=== PATIENT | female | born 1995 | race Caucasian/White ===

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

== ENCOUNTER 2017-03-02 10:19 | Emergency (ER) | payer MEDICAID ==
[2017-03-02 12:17] LABS: BASOPHILS 0.2 % (0-2); EOSINOPHILS 0.7 % (0-7); HEMATOCRIT 38.9 % (36.0-48.0); HEMOGLOBIN 13.3 g/dL (12-16); IMMATURE GRANULOCYTES 0.2 % (0-5); LYMPHOCYTES 34.6 % (15-50); MCH 28.7 pg (26.0-34.0); MCHC 34.2 g/dL (31.0-37.0); MCV 83.8 fL (80.0-100.0); MEAN PLATELET VOLUME 9.7 fL (7.4-10.4); MONOCYTES 6.5 % (2-11); NEUTROPHILS 57.8 % (40-80); RBC 4.64 10x6/uL (4.00-5.40); RDW 12.8 % (11.5-14.5); WBC 5.7 10x3/uL (4.8-10.8)
[2017-03-02 12:21] LABS: PLATELET COUNT 216 10x3/uL (130-400)
[2017-03-02 12:33] LABS: APPEARANCE HAZY (CLEAR); BILIRUBIN NEGATIVE (NEGATIVE); COLOR YELLOW (YELLOW); GLUCOSE NEGATIVE (NEGATIVE); KETONE NEGATIVE (NEGATIVE); LEUKOCYTE ESTERASE 1+ (NEGATIVE); NITRITE NEGATIVE (NEGATIVE); PROTEIN NEGATIVE (NEGATIVE); UROBILINOGEN NORMAL (NORMAL)
[2017-03-02 12:36] LABS: ALBUMIN 3.6 g/dL (3.4-5.0); ALKALINE PHOSPHATASE 85 U/L (46-116); ALT (SGPT) 24 U/L (10-68); AMYLASE - SERUM 56 U/L (25-115); BILIRUBIN - TOTAL 0.41 mg/dL (0.2-1.3); CALC OSMOLALITY 277 mosm/kg (275-300); CARBON DIOXIDE 28.8 mmol/L (21.0-32.0); CHLORIDE - SERUM 106 mmol/L (98-107); GLUCOSE 88 mg/dL (74-106); LIPASE 169 U/L (73-393); POTASSIUM - SERUM 3.8 mmol/L (3.5-5.1); PROTEIN - SERUM 7.4 g/dL (6.4-8.2); SODIUM 139 mmol/L (136-145); UREA NITROGEN 14 mg/dL (7-18); eGFR NON AFRICAN AMERICAN 76 mL/min (90-120)
[2017-03-02 12:37] LABS: BACTERIA FEW /hpf (NONE SEEN); RED CELLS - URINE OCC /hpf (0-5)
[2017-03-02 12:38] LABS: MUCUS <1+ /lpf (NONE SEEN)
[2017-03-02 12:41] LABS: HCG SERUM NEGATIVE (NEGATIVE)
== END 2017-03-02 13:34 | disposition home or self-care (01) ==
LOC: D.ER 10:19
PROVIDERS: Physician Assistant
DX: G43.909 Migraine, unspecified, not intractable, without status migrainosus (principal); R11.2 Nausea with vomiting, unspecified

== ENCOUNTER 2017-03-07 10:20 | Emergency (ER) | payer MEDICAID ==
[2017-03-07 10:57] LABS: BASOPHILS 0.3 % (0-2); EOSINOPHILS 0.9 % (0-7); HEMATOCRIT 38.8 % (36.0-48.0); IMMATURE GRANULOCYTES 0.2 % (0-5); LYMPHOCYTES 22.6 % (15-50); MCH 28.1 pg (26.0-34.0); MCHC 33.5 g/dL (31.0-37.0); MEAN PLATELET VOLUME 9.4 fL (7.4-10.4); MONOCYTES 9.4 % (2-11); NEUTROPHILS 66.6 % (40-80); PLATELET COUNT 217 10x3/uL (130-400); RBC 4.62 10x6/uL (4.00-5.40); RDW 12.6 % (11.5-14.5); WBC 5.8 10x3/uL (4.8-10.8)
[2017-03-07 11:22] LABS: ALBUMIN 3.6 g/dL (3.4-5.0); ALKALINE PHOSPHATASE 88 U/L (46-116); ALT (SGPT) 24 U/L (10-68); AMYLASE - SERUM 42 U/L (25-115); BILIRUBIN - TOTAL 0.46 mg/dL (0.2-1.3); CALC OSMOLALITY 279 mosm/kg (275-300); CALCIUM 8.7 mg/dL (8.5-10.1); CARBON DIOXIDE 29.1 mmol/L (21.0-32.0); CHLORIDE - SERUM 107 mmol/L (98-107); GLUCOSE 101 mg/dL (74-106); LIPASE 134 U/L (73-393); PROTEIN - SERUM 7.4 g/dL (6.4-8.2); SODIUM 141 mmol/L (136-145); UREA NITROGEN 9 mg/dL (7-18); eGFR NON AFRICAN AMERICAN 76 mL/min (90-120)
[2017-03-07 11:39] LABS: APPEARANCE CLEAR (CLEAR); BILIRUBIN NEGATIVE (NEGATIVE); COLOR YELLOW (YELLOW); GLUCOSE NEGATIVE (NEGATIVE); KETONE NEGATIVE (NEGATIVE); LEUKOCYTE ESTERASE NEGATIVE (NEGATIVE); NITRITE NEGATIVE (NEGATIVE); PROTEIN NEGATIVE (NEGATIVE); UROBILINOGEN NORMAL (NORMAL)
== END 2017-03-07 13:27 | disposition home or self-care (01) ==
LOC: D.ER 10:20
PROVIDERS: Emergency Medicine
DX: R11.10 Vomiting, unspecified (principal); R10.9 Unspecified abdominal pain

== ENCOUNTER 2017-04-03 15:55 | Emergency (ER) | payer MEDICAID | END 2017-04-03 19:00 | disposition left against medical advice (07) | LOC: D.ER 15:55 | DX: R05 Cough (principal) ==

== ENCOUNTER 2017-04-04 01:29 | Emergency (ER) | payer MEDICAID | END 2017-04-04 02:56 | disposition home or self-care (01) | LOC: D.ER 01:29 | DX: J02.9 Acute pharyngitis, unspecified (principal); R05 Cough; J45.909 Unspecified asthma, uncomplicated ==

== ENCOUNTER 2017-04-30 10:00 | Emergency (ER) | payer MEDICAID | END 2017-04-30 11:47 | disposition home or self-care (01) | LOC: D.ER 10:00 | DX: S92.511A Displaced fracture of proximal phalanx of right lesser toe(s), initial encounter for closed fracture (principal); X58.XXXA Exposure to other specified factors, initial encounter; Y93.89 Activity, other specified; Y92.89 Other specified places as the place of occurrence of the external cause; J45.909 Unspecified asthma, uncomplicated ==

== ENCOUNTER 2017-05-19 13:19 | Emergency (ER) | payer MEDICAID ==
[2017-05-19 13:55] LABS: BASOPHILS 0.6 % (0-2); EOSINOPHILS 1.5 % (0-7); HEMATOCRIT 38.6 % (36.0-48.0); HEMOGLOBIN 12.8 g/dL (12-16); LYMPHOCYTES 28.8 % (15-50); MCH 28.3 pg (26.0-34.0); MCHC 33.2 g/dL (31.0-37.0); MCV 85.4 fL (80.0-100.0); MEAN PLATELET VOLUME 9.8 fL (7.4-10.4); MONOCYTES 7.1 % (2-11); PLATELET COUNT 193 10x3/uL (130-400); RBC 4.52 10x6/uL (4.00-5.40); RDW 13.4 % (11.5-14.5); WBC 4.8 10x3/uL (4.8-10.8)
[2017-05-19 14:07] LABS: AMORPHOUS SEDIMENT <1+ /lpf (NONE SEEN); APPEARANCE HAZY (CLEAR); BACTERIA MODERATE /hpf (NONE SEEN); BILIRUBIN NEGATIVE (NEGATIVE); COLOR YELLOW (YELLOW); GLUCOSE NEGATIVE (NEGATIVE); KETONE NEGATIVE (NEGATIVE); LEUKOCYTE ESTERASE 2+ (NEGATIVE); MUCUS <1+ /lpf (NONE SEEN); NITRITE NEGATIVE (NEGATIVE); PROTEIN NEGATIVE (NEGATIVE); UROBILINOGEN NORMAL (NORMAL)
[2017-05-19 14:11] LABS: ALBUMIN 3.3 g/dL (3.4-5.0); ALKALINE PHOSPHATASE 69 U/L (46-116); ALT (SGPT) 21 U/L (10-68); BILIRUBIN - TOTAL 0.48 mg/dL (0.2-1.3); CALC OSMOLALITY 279 mosm/kg (275-300); CALCIUM 8.3 mg/dL (8.5-10.1); CARBON DIOXIDE 27.9 mmol/L (21.0-32.0); CHLORIDE - SERUM 107 mmol/L (98-107); CREATININE - SERUM 0.8 mg/dL (0.6-1.3); GLUCOSE 93 mg/dL (74-106); POTASSIUM - SERUM 3.8 mmol/L (3.5-5.1); PROTEIN - SERUM 6.7 g/dL (6.4-8.2); SODIUM 141 mmol/L (136-145); UREA NITROGEN 9 mg/dL (7-18); eGFR NON AFRICAN AMERICAN > 90 mL/min (90-120)
[2017-05-19 14:21] LABS: HCG SERUM NEGATIVE (NEGATIVE)
== END 2017-05-19 15:49 | disposition home or self-care (01) ==
LOC: D.ER 13:19
PROVIDERS: Emergency Medicine
DX: N72 Inflammatory disease of cervix uteri (principal); N83.201 Unspecified ovarian cyst, right side; N39.0 Urinary tract infection, site not specified; N76.0 Acute vaginitis

== ENCOUNTER 2017-05-23 14:34 | Emergency (ER) | payer MEDICAID | END 2017-05-23 15:35 | disposition home or self-care (01) | LOC: D.ER 14:34 | DX: N76.0 Acute vaginitis (principal); R10.9 Unspecified abdominal pain; R30.0 Dysuria; R11.2 Nausea with vomiting, unspecified ==

== ENCOUNTER → 2017-06-12 17:07 | Outpatient (CLI) | payer MEDICAID ==
[2017-06-12 18:25] LABS: APPEARANCE CLEAR (CLEAR); BILIRUBIN NEGATIVE (NEGATIVE); COLOR YELLOW (YELLOW); GLUCOSE NEGATIVE (NEGATIVE); KETONE NEGATIVE (NEGATIVE); LEUKOCYTE ESTERASE NEGATIVE (NEGATIVE); NITRITE NEGATIVE (NEGATIVE); PROTEIN NEGATIVE (NEGATIVE); SPECIFIC GRAVITY 1.015 (1.005-1.020); UROBILINOGEN NORMAL (NORMAL)
[2017-06-12 19:00] LABS: AMYLASE - SERUM 42 U/L (25-115); HCG - QUANTITATIVE (MATERNAL) 14896 mIU/mL
== END | disposition home or self-care (01) ==
LOC: D.LDO 17:07
PROVIDERS: Obstetrics & Gynecology
DX: O21.0 Mild hyperemesis gravidarum (principal); Z3A.01 Less than 8 weeks gestation of pregnancy

== ENCOUNTER 2017-06-27 01:24 | Emergency (ER) | payer MEDICAID ==
[2017-06-27 02:04] LABS: APPEARANCE CLEAR (CLEAR); BILIRUBIN NEGATIVE (NEGATIVE); COLOR YELLOW (YELLOW); GLUCOSE NEGATIVE (NEGATIVE); KETONE NEGATIVE (NEGATIVE); LEUKOCYTE ESTERASE NEGATIVE (NEGATIVE); NITRITE NEGATIVE (NEGATIVE); PROTEIN NEGATIVE (NEGATIVE); UROBILINOGEN NORMAL (NORMAL)
[2017-06-27 02:13] LABS: BASOPHILS 0.2 % (0-2); EOSINOPHILS 1.5 % (0-7); HEMATOCRIT 34.7 % (36.0-48.0); IMMATURE GRANULOCYTES 0.1 % (0-5); LYMPHOCYTES 19.1 % (15-50); MCH 28.6 pg (26.0-34.0); MCHC 34.6 g/dL (31.0-37.0); MCV 82.8 fL (80.0-100.0); MEAN PLATELET VOLUME 9.2 fL (7.4-10.4); MONOCYTES 7.9 % (2-11); NEUTROPHILS 71.2 % (40-80); RBC 4.19 10x6/uL (4.00-5.40); RDW 12.6 % (11.5-14.5); WBC 10.4 10x3/uL (4.8-10.8)
[2017-06-27 02:15] LABS: PLATELET COUNT 244 10x3/uL (130-400)
[2017-06-27 02:27] LABS: ALBUMIN 3.2 g/dL (3.4-5.0); ALKALINE PHOSPHATASE 75 U/L (46-116); ALT (SGPT) 15 U/L (10-68); CALC OSMOLALITY 274 mosm/kg (275-300); CALCIUM 8.5 mg/dL (8.5-10.1); CARBON DIOXIDE 23.3 mmol/L (21.0-32.0); CHLORIDE - SERUM 106 mmol/L (98-107); CREATININE - SERUM 0.7 mg/dL (0.6-1.3); GLUCOSE 96 mg/dL (74-106); POTASSIUM - SERUM 3.5 mmol/L (3.5-5.1); PROTEIN - SERUM 6.4 g/dL (6.4-8.2); SODIUM 138 mmol/L (136-145); UREA NITROGEN 10 mg/dL (7-18); eGFR NON AFRICAN AMERICAN > 90 mL/min (90-120)
== END 2017-06-27 03:14 | disposition home or self-care (01) ==
LOC: D.ER 01:24
PROVIDERS: Emergency Medicine
DX: O26.891 Other specified pregnancy related conditions, first trimester (principal); Z3A.00 Weeks of gestation of pregnancy not specified; M79.605 Pain in left leg; M79.604 Pain in right leg

== ENCOUNTER 2017-06-28 14:30 | Emergency (ER) | payer MEDICAID | END 2017-06-28 19:00 | disposition left against medical advice (07) | LOC: D.ER 14:30 | DX: L02.412 Cutaneous abscess of left axilla (principal) ==

== ENCOUNTER 2017-07-09 14:25 | Emergency (ER) | payer MEDICAID ==
[2017-07-09 15:06] LABS: BASOPHILS 0.3 % (0-2); EOSINOPHILS 2.8 % (0-7); HEMATOCRIT 36.5 % (36.0-48.0); HEMOGLOBIN 12.5 g/dL (12-16); IMMATURE GRANULOCYTES 0.3 % (0-5); LYMPHOCYTES 24.5 % (15-50); MCH 28.9 pg (26.0-34.0); MCHC 34.2 g/dL (31.0-37.0); MCV 84.3 fL (80.0-100.0); MEAN PLATELET VOLUME 9.5 fL (7.4-10.4); MONOCYTES 7.4 % (2-11); NEUTROPHILS 64.7 % (40-80); PLATELET COUNT 253 10x3/uL (130-400); RBC 4.33 10x6/uL (4.00-5.40); RDW 12.7 % (11.5-14.5); WBC 6.5 10x3/uL (4.8-10.8)
[2017-07-09 15:20] LABS: APPEARANCE CLOUDY (CLEAR); BILIRUBIN NEGATIVE (NEGATIVE); COLOR YELLOW (YELLOW); GLUCOSE NEGATIVE (NEGATIVE); KETONE NEGATIVE (NEGATIVE); LEUKOCYTE ESTERASE 2+ (NEGATIVE); NITRITE NEGATIVE (NEGATIVE); PROTEIN NEGATIVE (NEGATIVE); SPECIFIC GRAVITY 1.015 (1.005-1.020); UROBILINOGEN NORMAL (NORMAL)
[2017-07-09 15:27] LABS: BACTERIA MANY /hpf (NONE SEEN); EPITHELIAL CELLS 0-5 /hpf (0-5); RED CELLS - URINE OCC /hpf (0-5)
[2017-07-09 15:28] LABS: HYALINE CAST RARE /lpf (NONE SEEN); MUCUS <1+ /lpf (NONE SEEN)
[2017-07-09 15:34] LABS: ALBUMIN 3.3 g/dL (3.4-5.0); ALKALINE PHOSPHATASE 77 U/L (46-116); ALT (SGPT) 21 U/L (10-68); BILIRUBIN - TOTAL 0.37 mg/dL (0.2-1.3); CALC OSMOLALITY 276 mosm/kg (275-300); CALCIUM 8.5 mg/dL (8.5-10.1); CHLORIDE - SERUM 107 mmol/L (98-107); CREATININE - SERUM 0.7 mg/dL (0.6-1.3); GLUCOSE 92 mg/dL (74-106); POTASSIUM - SERUM 4.3 mmol/L (3.5-5.1); PROTEIN - SERUM 6.5 g/dL (6.4-8.2); SODIUM 140 mmol/L (136-145); UREA NITROGEN 7 mg/dL (7-18); eGFR NON AFRICAN AMERICAN > 90 mL/min (90-120)
== END 2017-07-09 16:07 | disposition home or self-care (01) ==
LOC: D.ER 14:25
PROVIDERS: Emergency Medicine
DX: O26.891 Other specified pregnancy related conditions, first trimester (principal); Z3A.10 10 weeks gestation of pregnancy; R10.9 Unspecified abdominal pain; N39.0 Urinary tract infection, site not specified; J45.909 Unspecified asthma, uncomplicated

== ENCOUNTER 2017-07-09 20:56 | Emergency (ER) | payer MEDICAID ==
[2017-07-09 23:12] LABS: BASOPHILS 0.5 % (0-2); EOSINOPHILS 2.8 % (0-7); HEMATOCRIT 35.4 % (36.0-48.0); HEMOGLOBIN 12.1 g/dL (12-16); LYMPHOCYTES 32.7 % (15-50); MCH 28.7 pg (26.0-34.0); MCHC 34.2 g/dL (31.0-37.0); MCV 83.9 fL (80.0-100.0); MEAN PLATELET VOLUME 9.2 fL (7.4-10.4); MONOCYTES 8.7 % (2-11); NEUTROPHILS 55.3 % (40-80); PLATELET COUNT 256 10x3/uL (130-400); RBC 4.22 10x6/uL (4.00-5.40); RDW 12.7 % (11.5-14.5); WBC 7.6 10x3/uL (4.8-10.8)
[2017-07-09 23:21] LABS: ALBUMIN 3.2 g/dL (3.4-5.0); ALKALINE PHOSPHATASE 77 U/L (46-116); ALT (SGPT) 23 U/L (10-68); BILIRUBIN - TOTAL 0.32 mg/dL (0.2-1.3); CALC OSMOLALITY 276 mosm/kg (275-300); CALCIUM 8.5 mg/dL (8.5-10.1); CARBON DIOXIDE 27.1 mmol/L (21.0-32.0); CHLORIDE - SERUM 107 mmol/L (98-107); CREATININE - SERUM 0.8 mg/dL (0.6-1.3); PROTEIN - SERUM 6.7 g/dL (6.4-8.2); SODIUM 141 mmol/L (136-145); UREA NITROGEN 8 mg/dL (7-18); eGFR NON AFRICAN AMERICAN > 90 mL/min (90-120)
[2017-07-09 23:26] LABS: GLUCOSE 59 mg/dL (74-106)
[2017-07-09 23:27] LABS: APPEARANCE CLOUDY (CLEAR); COLOR YELLOW (YELLOW); SPECIFIC GRAVITY 1.005 (1.005-1.020)
[2017-07-09 23:28] LABS: BILIRUBIN NEGATIVE (NEGATIVE); EPITHELIAL CELLS 0-5 /hpf (0-5); GLUCOSE NEGATIVE (NEGATIVE); KETONE NEGATIVE (NEGATIVE); LEUKOCYTE ESTERASE TRACE (NEGATIVE); NITRITE NEGATIVE (NEGATIVE); PROTEIN NEGATIVE (NEGATIVE); RED CELLS - URINE NONE SEEN /hpf (0-5); UROBILINOGEN NORMAL (NORMAL); WHITE CELLS - URINE 0-5 /hpf (0-5)
[2017-07-09 23:29] LABS: AMORPHOUS SEDIMENT >1+ /lpf (NONE SEEN); BACTERIA MANY /hpf (NONE SEEN)
== END 2017-07-10 00:25 | disposition home or self-care (01) ==
LOC: D.ER 20:56
PROVIDERS: Emergency Medicine
DX: M79.605 Pain in left leg (principal); M79.604 Pain in right leg; N39.0 Urinary tract infection, site not specified; J45.909 Unspecified asthma, uncomplicated

== ENCOUNTER 2017-07-26 10:31 | Emergency (ER) | payer MEDICAID ==
[2017-07-26 11:18] LABS: BASOPHILS 0.6 % (0-2); EOSINOPHILS 4.9 % (0-7); HEMATOCRIT 37.7 % (36.0-48.0); HEMOGLOBIN 12.9 g/dL (12-16); LYMPHOCYTES 34.5 % (15-50); MCH 28.5 pg (26.0-34.0); MCHC 34.2 g/dL (31.0-37.0); MCV 83.4 fL (80.0-100.0); MEAN PLATELET VOLUME 9.4 fL (7.4-10.4); MONOCYTES 6.2 % (2-11); NEUTROPHILS 53.8 % (40-80); PLATELET COUNT 232 10x3/uL (130-400); RBC 4.52 10x6/uL (4.00-5.40); RDW 13.2 % (11.5-14.5); WBC 4.7 10x3/uL (4.8-10.8)
[2017-07-26 11:26] LABS: HCG SERUM POSITIVE (NEGATIVE)
[2017-07-26 11:40] LABS: APPEARANCE HAZY (CLEAR); BACTERIA MODERATE /hpf (NONE SEEN); BILIRUBIN NEGATIVE (NEGATIVE); COLOR YELLOW (YELLOW); GLUCOSE NEGATIVE (NEGATIVE); KETONE NEGATIVE (NEGATIVE); LEUKOCYTE ESTERASE 1+ (NEGATIVE); MUCUS <1+ /lpf (NONE SEEN); NITRITE NEGATIVE (NEGATIVE); PROTEIN NEGATIVE (NEGATIVE); RED CELLS - URINE RARE /hpf (0-5); WHITE CELLS - URINE 0-5 /hpf (0-5)
== END 2017-07-26 12:03 | disposition home or self-care (01) ==
LOC: D.ER 10:31
PROVIDERS: Emergency Medicine
DX: O20.0 Threatened abortion (principal); Z3A.12 12 weeks gestation of pregnancy

== ENCOUNTER 2017-07-27 15:24 | Emergency (ER) | payer MEDICAID | END 2017-07-27 16:24 | disposition home or self-care (01) | LOC: D.ER 15:24 | DX: O26.891 Other specified pregnancy related conditions, first trimester (principal); Z3A.11 11 weeks gestation of pregnancy; O03.4 Incomplete spontaneous abortion without complication ==

== ENCOUNTER 2017-10-11 10:44 | Emergency (ER) | payer MEDICAID | END 2017-10-11 13:30 | disposition home or self-care (01) | LOC: D.ER 10:44 | DX: M54.5 Low back pain (principal) ==

== ENCOUNTER 2017-10-27 13:07 | Emergency (ER) | payer MEDICAID ==
[2017-10-27 13:48] LABS: BASOPHILS 0.5 % (0-2); EOSINOPHILS 3.2 % (0-7); HEMATOCRIT 39.6 % (36.0-48.0); HEMOGLOBIN 13.7 g/dL (12-16); IMMATURE GRANULOCYTES 0.2 % (0-5); LYMPHOCYTES 23.6 % (15-50); MCH 28.7 pg (26.0-34.0); MCHC 34.6 g/dL (31.0-37.0); MEAN PLATELET VOLUME 9.6 fL (7.4-10.4); MONOCYTES 7.7 % (2-11); NEUTROPHILS 64.8 % (40-80); PLATELET COUNT 234 10x3/uL (130-400); RBC 4.77 10x6/uL (4.00-5.40); RDW 12.6 % (11.5-14.5); WBC 6.7 10x3/uL (4.8-10.8)
[2017-10-27 14:05] LABS: ALBUMIN 3.6 g/dL (3.4-5.0); ALKALINE PHOSPHATASE 68 U/L (46-116); ALT (SGPT) 14 U/L (10-68); CALC OSMOLALITY 274 mosm/kg (275-300); CALCIUM 9.4 mg/dL (8.5-10.1); CARBON DIOXIDE 26.2 mmol/L (21.0-32.0); CHLORIDE - SERUM 104 mmol/L (98-107); CREATININE - SERUM 0.7 mg/dL (0.6-1.3); POTASSIUM - SERUM 3.6 mmol/L (3.5-5.1); PROTEIN - SERUM 7.2 g/dL (6.4-8.2); SODIUM 139 mmol/L (136-145); UREA NITROGEN 9 mg/dL (7-18); eGFR NON AFRICAN AMERICAN > 90 mL/min (90-120)
[2017-10-27 14:07] LABS: GLUCOSE 70 mg/dL (74-106)
[2017-10-27 14:16] LABS: APPEARANCE CLEAR (CLEAR); BILIRUBIN NEGATIVE (NEGATIVE); COLOR YELLOW (YELLOW); GLUCOSE NEGATIVE (NEGATIVE); KETONE NEGATIVE (NEGATIVE); NITRITE NEGATIVE (NEGATIVE); PROTEIN NEGATIVE (NEGATIVE); UROBILINOGEN NORMAL (NORMAL)
[2017-10-27 14:18] LABS: BACTERIA MODERATE /hpf (NONE SEEN); MUCUS >1+ /lpf (NONE SEEN); RED CELLS - URINE OCC /hpf (0-5); WHITE CELLS - URINE 0-5 /hpf (0-5)
== END 2017-10-27 17:11 | disposition home or self-care (01) ==
LOC: D.ER 13:07
PROVIDERS: Emergency Medicine
DX: O26.891 Other specified pregnancy related conditions, first trimester (principal); Z3A.09 9 weeks gestation of pregnancy; R10.9 Unspecified abdominal pain

== ENCOUNTER 2017-12-09 10:48 | Emergency (ER) | payer MEDICAID ==
[2017-12-09 11:25] LABS: BASOPHILS 0.2 % (0-2); EOSINOPHILS 3.1 % (0-7); HEMATOCRIT 35.8 % (36.0-48.0); HEMOGLOBIN 12.5 g/dL (12-16); IMMATURE GRANULOCYTES 0.2 % (0-5); LYMPHOCYTES 22.3 % (15-50); MCH 28.5 pg (26.0-34.0); MCHC 34.9 g/dL (31.0-37.0); MCV 81.5 fL (80.0-100.0); MEAN PLATELET VOLUME 9.4 fL (7.4-10.4); MONOCYTES 6.4 % (2-11); NEUTROPHILS 67.8 % (40-80); PLATELET COUNT 213 10x3/uL (130-400); RBC 4.39 10x6/uL (4.00-5.40); RDW 12.9 % (11.5-14.5); WBC 8.1 10x3/uL (4.8-10.8)
[2017-12-09 11:39] LABS: ALBUMIN 3.2 g/dL (3.4-5.0); ALKALINE PHOSPHATASE 58 U/L (46-116); ALT (SGPT) 16 U/L (10-68); AMYLASE - SERUM 57 U/L (25-115); BILIRUBIN - TOTAL 0.29 mg/dL (0.2-1.3); CALC OSMOLALITY 270 mosm/kg (275-300); CALCIUM 8.8 mg/dL (8.5-10.1); CHLORIDE - SERUM 104 mmol/L (98-107); CREATININE - SERUM 0.6 mg/dL (0.6-1.3); GLUCOSE 88 mg/dL (74-106); LIPASE 160 U/L (73-393); POTASSIUM - SERUM 3.9 mmol/L (3.5-5.1); PROTEIN - SERUM 7.1 g/dL (6.4-8.2); SODIUM 137 mmol/L (136-145); UREA NITROGEN 8 mg/dL (7-18); eGFR NON AFRICAN AMERICAN > 90 mL/min (90-120)
[2017-12-09 11:41] LABS: APPEARANCE CLOUDY (CLEAR); BILIRUBIN NEGATIVE (NEGATIVE); COLOR YELLOW (YELLOW); GLUCOSE NEGATIVE (NEGATIVE); KETONE NEGATIVE (NEGATIVE); NITRITE NEGATIVE (NEGATIVE); PROTEIN NEGATIVE (NEGATIVE); RED CELLS - URINE 0-5 /hpf (0-5); SPECIFIC GRAVITY 1.015 (1.005-1.020); UROBILINOGEN NORMAL (NORMAL)
[2017-12-09 11:42] LABS: BACTERIA MANY /hpf (NONE SEEN)
== END 2017-12-09 12:00 | disposition home or self-care (01) ==
LOC: D.ER 10:48
PROVIDERS: Emergency Medicine
DX: O26.892 Other specified pregnancy related conditions, second trimester (principal); Z3A.15 15 weeks gestation of pregnancy; K29.00 Acute gastritis without bleeding; N39.0 Urinary tract infection, site not specified

== ENCOUNTER 2017-12-22 14:14 | Emergency (ER) | payer MEDICAID ==
[2017-12-22 15:36] LABS: BASOPHILS 0.3 % (0-2); EOSINOPHILS 2.9 % (0-7); HEMATOCRIT 33.9 % (36.0-48.0); HEMOGLOBIN 11.8 g/dL (12-16); IMMATURE GRANULOCYTES 0.1 % (0-5); LYMPHOCYTES 20.5 % (15-50); MCH 29.1 pg (26.0-34.0); MCHC 34.8 g/dL (31.0-37.0); MCV 83.5 fL (80.0-100.0); MEAN PLATELET VOLUME 9.1 fL (7.4-10.4); MONOCYTES 5.5 % (2-11); NEUTROPHILS 70.7 % (40-80); PLATELET COUNT 234 10x3/uL (130-400); RBC 4.06 10x6/uL (4.00-5.40); RDW 13.3 % (11.5-14.5)
[2017-12-22 15:41] LABS: APPEARANCE CLEAR (CLEAR); BILIRUBIN NEGATIVE (NEGATIVE); COLOR YELLOW (YELLOW); GLUCOSE NEGATIVE (NEGATIVE); KETONE NEGATIVE (NEGATIVE); NITRITE NEGATIVE (NEGATIVE); PROTEIN NEGATIVE (NEGATIVE); UROBILINOGEN NORMAL (NORMAL)
[2017-12-22 15:49] LABS: ALKALINE PHOSPHATASE 70 U/L (46-116); ALT (SGPT) 18 U/L (10-68); BILIRUBIN - TOTAL 0.22 mg/dL (0.2-1.3); CALC OSMOLALITY 269 mosm/kg (275-300); CALCIUM 8.8 mg/dL (8.5-10.1); CARBON DIOXIDE 24.3 mmol/L (21.0-32.0); CHLORIDE - SERUM 104 mmol/L (98-107); CREATININE - SERUM 0.7 mg/dL (0.6-1.3); GLUCOSE 94 mg/dL (74-106); POTASSIUM - SERUM 3.8 mmol/L (3.5-5.1); SODIUM 136 mmol/L (136-145); UREA NITROGEN 7 mg/dL (7-18); eGFR NON AFRICAN AMERICAN > 90 mL/min (90-120)
== END 2017-12-22 18:17 | disposition home or self-care (01) ==
LOC: D.ER 14:14
PROVIDERS: Emergency Medicine
DX: O26.892 Other specified pregnancy related conditions, second trimester (principal); Z3A.17 17 weeks gestation of pregnancy; R10.9 Unspecified abdominal pain

== ENCOUNTER 2017-12-27 09:17 | Emergency (ER) | payer MEDICAID | END 2017-12-27 11:40 | disposition left against medical advice (07) | LOC: D.ER 09:17 | DX: O26.892 Other specified pregnancy related conditions, second trimester (principal); Z3A.18 18 weeks gestation of pregnancy ==

== ENCOUNTER → 2018-02-12 11:55 | Outpatient (CLI) | payer MEDICAID ==
[~2018-02-12 11:55] MED LIST changes: +PHENERGAN25 M1 PO
[2018-02-12 13:02] LABS: APPEARANCE CLEAR (CLEAR); BILIRUBIN NEGATIVE (NEGATIVE); COLOR YELLOW (YELLOW); GLUCOSE NEGATIVE (NEGATIVE); KETONE NEGATIVE (NEGATIVE); NITRITE NEGATIVE (NEGATIVE); PROTEIN NEGATIVE (NEGATIVE); SPECIFIC GRAVITY 1.015 (1.005-1.020); UROBILINOGEN NORMAL (NORMAL)
[2018-02-12 13:04] LABS: MUCUS >1+ /lpf (NONE SEEN)
[2018-02-12 13:06] LABS: BACTERIA MODERATE /hpf (NONE SEEN); RED CELLS - URINE OCC /hpf (0-5)
== END | disposition home or self-care (01) ==
LOC: D.LDO 11:55
PROVIDERS: Obstetrics & Gynecology
DX: O26.892 Other specified pregnancy related conditions, second trimester (principal); Z3A.24 24 weeks gestation of pregnancy; M54.5 Low back pain; R10.30 Lower abdominal pain, unspecified

== ENCOUNTER → 2018-03-08 16:29 | Outpatient (CLI) | payer MEDICAID | END | disposition home or self-care (01) | LOC: D.LDO 16:29 | DX: O26.893 Other specified pregnancy related conditions, third trimester (principal); Z3A.27 27 weeks gestation of pregnancy ==

== ENCOUNTER → 2018-04-01 15:20 | Outpatient (CLI) | payer MEDICAID ==
[~2018-04-01 15:20] MED LIST changes: +MICRONOR0.35 MG PO
[2018-04-01 16:06] LABS: APPEARANCE CLEAR (CLEAR); BILIRUBIN NEGATIVE (NEGATIVE); COLOR DK YELLOW (YELLOW); GLUCOSE NEGATIVE (NEGATIVE); KETONE NEGATIVE (NEGATIVE); NITRITE NEGATIVE (NEGATIVE); PROTEIN NEGATIVE (NEGATIVE); UROBILINOGEN NORMAL (NORMAL)
[2018-04-01 16:30] LABS: BASOPHILS 0.2 % (0-2); EOSINOPHILS 1.7 % (0-7); HEMATOCRIT 31.9 % (36.0-48.0); HEMOGLOBIN 10.8 g/dL (12-16); IMMATURE GRANULOCYTES 0.3 % (0-5); LYMPHOCYTES 14.6 % (15-50); MCH 28.8 pg (26.0-34.0); MCHC 33.9 g/dL (31.0-37.0); MCV 85.1 fL (80.0-100.0); MEAN PLATELET VOLUME 9.4 fL (7.4-10.4); MONOCYTES 6.1 % (2-11); NEUTROPHILS 77.1 % (40-80); PLATELET COUNT 240 10x3/uL (130-400); RBC 3.75 10x6/uL (4.00-5.40); RDW 12.7 % (11.5-14.5); WBC 10.4 10x3/uL (4.8-10.8)
[2018-04-01 16:46] LABS: UDS - AMPHET NEGATIVE QUAL (NEGATIVE); UDS - BARB NEGATIVE QUAL (NEGATIVE); UDS - BENZO NEGATIVE QUAL (NEGATIVE); UDS - COCAINE NEGATIVE QUAL (NEGATIVE); UDS - OPIATE NEGATIVE QUAL (NEGATIVE); UDS - PCP NEGATIVE QUAL (NEGATIVE); UDS - THC NEGATIVE QUAL (NEGATIVE)
[2018-05-27 21:06] VITALS: BMI 46.1
== END | disposition home or self-care (01) ==
LOC: D.LDO 15:20
PROVIDERS: Obstetrics & Gynecology
DX: O26.893 Other specified pregnancy related conditions, third trimester (principal); Z3A.31 31 weeks gestation of pregnancy; R10.2 Pelvic and perineal pain; R10.9 Unspecified abdominal pain

== ENCOUNTER 2018-04-03 14:53 | Emergency (ER) | payer MEDICAID ==
[~2018-04-03] VITALS: Ht 165.1 cm; Wt 116.4 kg
[~2018-04-03 14:53] MED LIST changes: -MICRONOR0.35 MG PO; -PHENERGAN25 M1 PO
[2018-04-03 14:55] VITALS: Ht 165.1 cm; Wt 116.4 kg
[2018-04-03 15:29] LABS: BASOPHILS 0.1 % (0-2); EOSINOPHILS 1.5 % (0-7); HEMATOCRIT 34.8 % (36.0-48.0); HEMOGLOBIN 11.9 g/dL (12-16); IMMATURE GRANULOCYTES 0.3 % (0-5); LYMPHOCYTES 16.9 % (15-50); MCHC 34.2 g/dL (31.0-37.0); MCV 84.7 fL (80.0-100.0); MEAN PLATELET VOLUME 9.6 fL (7.4-10.4); MONOCYTES 6.4 % (2-11); NEUTROPHILS 74.8 % (40-80); PLATELET COUNT 262 10x3/uL (130-400); RBC 4.11 10x6/uL (4.00-5.40); RDW 12.6 % (11.5-14.5); WBC 9.8 10x3/uL (4.8-10.8)
[2018-04-03 15:42] LABS: ALBUMIN 2.7 g/dL (3.4-5.0); ALKALINE PHOSPHATASE 94 U/L (46-116); ALT (SGPT) 15 U/L (10-68); CALC OSMOLALITY 273 mosm/kg (275-300); CARBON DIOXIDE 26.1 mmol/L (21.0-32.0); CHLORIDE - SERUM 106 mmol/L (98-107); CREATININE - SERUM 0.7 mg/dL (0.6-1.3); GLUCOSE 107 mg/dL (74-106); PROTEIN - SERUM 7.1 g/dL (6.4-8.2); SODIUM 138 mmol/L (136-145); UREA NITROGEN 7 mg/dL (7-18); eGFR NON AFRICAN AMERICAN > 90 mL/min (90-120)
[2018-04-03 15:51] LABS: APPEARANCE CLEAR (CLEAR); BILIRUBIN NEGATIVE (NEGATIVE); COLOR DK YELLOW (YELLOW); GLUCOSE NEGATIVE (NEGATIVE); KETONE NEGATIVE (NEGATIVE); NITRITE NEGATIVE (NEGATIVE); PROTEIN NEGATIVE (NEGATIVE); UROBILINOGEN NORMAL (NORMAL)
[2018-04-03 15:52] LABS: EPITHELIAL CELLS 0-5 /hpf (0-5); RED CELLS - URINE 0-5 /hpf (0-5); WHITE CELLS - URINE 0-5 /hpf (0-5)
[2018-04-03 15:53] LABS: BACTERIA MODERATE /hpf (NONE SEEN)
[2018-04-03] MEDS ORDERED: PHENERGAN25 M1 PO (16:50)
[2018-04-03 17:05] VITALS: BP 113/61
[2018-05-27 21:06] VITALS: Ht 165.1 cm; Wt 116.4 kg
== END 2018-04-03 17:06 | disposition home or self-care (01) ==
LOC: D.ER 14:53
PROVIDERS: Family Medicine
DX: O21.9 Vomiting of pregnancy, unspecified (principal); Z3A.31 31 weeks gestation of pregnancy; M54.6 Pain in thoracic spine; R05 Cough

== ENCOUNTER → 2018-04-14 11:28 | Outpatient (CLI) | payer MEDICAID ==
[2018-04-03 14:55] VITALS: BMI 42.6
[~2018-04-14 11:28] MED LIST changes: +MICRONOR0.35 MG PO; +PHENERGAN25 M1 PO
[2018-04-14 12:17] LABS: APPEARANCE CLEAR (CLEAR); COLOR YELLOW (YELLOW); GLUCOSE NEGATIVE (NEGATIVE); NITRITE NEGATIVE (NEGATIVE); PROTEIN NEGATIVE (NEGATIVE)
[2018-04-14 12:18] LABS: BILIRUBIN NEGATIVE (NEGATIVE); KETONE SMALL mg/dL (NEGATIVE); RED CELLS - URINE OCC /hpf (0-5); UROBILINOGEN NORMAL (NORMAL); WHITE CELLS - URINE 0-5 /hpf (0-5)
[2018-04-14 12:19] LABS: BACTERIA FEW /hpf (NONE SEEN); EPITHELIAL CELLS 0-5 /hpf (0-5)
[2018-05-27 21:06] VITALS: BMI 46.1
== END | disposition home or self-care (01) ==
LOC: D.LDO 11:28
PROVIDERS: Obstetrics & Gynecology
DX: O26.893 Other specified pregnancy related conditions, third trimester (principal); Z3A.33 33 weeks gestation of pregnancy; M54.9 Dorsalgia, unspecified

== ENCOUNTER 2018-04-30 21:52 | Outpatient (CLI) | payer MEDICAID ==
[2018-04-03 14:55] VITALS: BMI 42.6
[~2018-04-30 21:52] MED LIST changes: -MICRONOR0.35 MG PO
[2018-07-12 11:28] VITALS: BMI 42.5
== END 2018-04-30 22:19 | disposition home or self-care (01) ==
LOC: D.LDO 21:52
DX: O26.893 Other specified pregnancy related conditions, third trimester (principal); Z3A.35 35 weeks gestation of pregnancy; R10.2 Pelvic and perineal pain

== ENCOUNTER → 2018-05-01 11:42 | Outpatient (CLI) | payer MEDICAID ==
[2018-04-03 14:55] VITALS: BMI 42.6
[~2018-05-01 11:42] MED LIST changes: +CELEXA20 MG PO; +MICRONOR0.35 MG PO; +ROBAXIN500 MG PO
[2018-05-01 13:17] LABS: APPEARANCE HAZY (CLEAR); COLOR DY (YELLOW); GLUCOSE NEGATIVE (NEGATIVE); KETONE NEGATIVE (NEGATIVE); NITRITE NEGATIVE (NEGATIVE); PROTEIN TRACE mg/dL (NEGATIVE)
[2018-05-01 13:18] LABS: BILIRUBIN NEGATIVE (NEGATIVE); UROBILINOGEN NORMAL (NORMAL)
[2018-05-01 13:21] LABS: BACTERIA MODERATE /hpf (NONE SEEN); MUCUS <1+ /lpf (NONE SEEN); WHITE CELLS - URINE 0-5 /hpf (0-5)
[2018-05-01 13:22] LABS: HYALINE CAST RARE /lpf (NONE SEEN)
[2018-07-12 11:28] VITALS: BMI 42.5
== END | disposition home or self-care (01) ==
LOC: D.LDO 11:42
PROVIDERS: Obstetrics & Gynecology
DX: O21.9 Vomiting of pregnancy, unspecified (principal); Z3A.00 Weeks of gestation of pregnancy not specified; V43.62XA Car passenger injured in collision with other type car in traffic accident, initial encounter; Y93.89 Activity, other specified; Y92.410 Unspecified street and highway as the place of occurrence of the external cause

== ENCOUNTER 2018-05-06 23:25 | Outpatient (CLI) | payer MEDICAID ==
[2018-04-03 14:55] VITALS: BMI 42.6
[~2018-05-06 23:25] MED LIST changes: -CELEXA20 MG PO; -MICRONOR0.35 MG PO; -ROBAXIN500 MG PO
[2018-07-12 11:28] VITALS: BMI 42.5
== END 2018-05-06 23:59 | disposition home or self-care (01) ==
LOC: D.LDO 23:25 → D.LD 23:25 → D.LDO 23:59
DX: O26.893 Other specified pregnancy related conditions, third trimester (principal); Z3A.36 36 weeks gestation of pregnancy; R10.30 Lower abdominal pain, unspecified

== ENCOUNTER → 2018-05-11 14:06 | Outpatient (CLI) | payer MEDICAID ==
[2018-04-03 14:55] VITALS: BMI 42.6
[~2018-05-11 14:06] MED LIST changes: +CELEXA20 MG PO; +MICRONOR0.35 MG PO; +ROBAXIN500 MG PO
[2018-07-12 11:28] VITALS: BMI 42.5
== END | disposition home or self-care (01) ==
LOC: D.LDO 14:06
DX: O26.893 Other specified pregnancy related conditions, third trimester (principal); Z3A.37 37 weeks gestation of pregnancy

== ENCOUNTER → 2018-05-11 20:11 | Outpatient (CLI) | payer MEDICAID ==
[2018-04-03 14:55] VITALS: BMI 42.6
[2018-05-11 20:39] LABS: APPEARANCE CLEAR (CLEAR); BILIRUBIN NEGATIVE (NEGATIVE); COLOR DK YELLOW (YELLOW); GLUCOSE NEGATIVE (NEGATIVE); KETONE NEGATIVE (NEGATIVE); NITRITE NEGATIVE (NEGATIVE); PROTEIN NEGATIVE (NEGATIVE); SPECIFIC GRAVITY 1.015 (1.005-1.020); UROBILINOGEN NORMAL (NORMAL)
[2018-05-11 20:48] LABS: BACTERIA FEW /hpf (NONE SEEN); EPITHELIAL CELLS 0-5 /hpf (0-5); MUCUS <1+ /lpf (NONE SEEN); RED CELLS - URINE OCC /hpf (0-5); WHITE CELLS - URINE 0-5 /hpf (0-5)
[2018-07-12 11:28] VITALS: BMI 42.5
== END | disposition home or self-care (01) ==
LOC: D.LDO 20:11
PROVIDERS: Obstetrics & Gynecology
DX: O26.893 Other specified pregnancy related conditions, third trimester (principal); Z3A.37 37 weeks gestation of pregnancy

== ENCOUNTER → 2018-05-21 13:08 | Outpatient (CLI) | payer MEDICAID ==
[2018-04-03 14:55] VITALS: BMI 42.6
[2018-07-12 11:28] VITALS: BMI 42.5
== END | disposition home or self-care (01) ==
LOC: D.LDO 13:08
DX: O26.893 Other specified pregnancy related conditions, third trimester (principal); Z3A.37 37 weeks gestation of pregnancy; R10.30 Lower abdominal pain, unspecified; M54.5 Low back pain

== ENCOUNTER → 2018-05-25 15:48 | Outpatient (CLI) | payer MEDICAID ==
[2018-04-03 14:55] VITALS: BMI 42.6
[2018-05-25 18:11] LABS: APPEARANCE CLEAR (CLEAR); BILIRUBIN NEGATIVE (NEGATIVE); COLOR AMBER (YELLOW); GLUCOSE NEGATIVE (NEGATIVE); KETONE NEGATIVE (NEGATIVE); NITRITE NEGATIVE (NEGATIVE); PROTEIN NEGATIVE (NEGATIVE); UROBILINOGEN NORMAL (NORMAL)
[2018-07-12 11:28] VITALS: BMI 42.5
== END | disposition home or self-care (01) ==
LOC: D.LDO 15:48
PROVIDERS: Obstetrics & Gynecology
DX: O26.893 Other specified pregnancy related conditions, third trimester (principal); Z3A.39 39 weeks gestation of pregnancy; R11.0 Nausea

== ENCOUNTER 2018-05-27 20:19 | Inpatient (IN) | payer MEDICAID ==
[~2018-05-27] VITALS: Ht 165.1 cm; Wt 125.6 kg
--- NOTE | ~2018-05-27 | DS ---
PATIENT:AC APONTE :89 MEDICAL RECORD: [id number] DISCHARGE SUMMARY ADMISSION DATE: 05/27/18 DISCHARGE DATE: 05/30/18 DATE OF ADMISSION: 05/27/2018 DATE OF DISCHARGE: 05/30/2018 ADMISSION DIAGNOSES: 1. at term. 2. Group B streptococcus carrier. DISCHARGE DIAGNOSES: 1. Mother delivered at term. 2. Group B streptococcus carrier. PROCEDURE: Induction of labor with vaginal delivery. ATTENDING: Sarai Mac MD HISTORY OF PRESENT ILLNESS: See the H&P in the chart. SUMMARY OF HOSPITALIZATION: The patient was admitted to the hospital and underwent induction of labor. At the time of discharge, the patient is reporting scant to minimal lochia with adequate pain control. The patient will be discharged home on Micronor for control. Standard precautions have been reviewed. TRANSINT:[id number] Voice Confirmation ID: [id number] DOCUMENT ID: [id number] SARAI MAC MD at 1803 CC: [id number] DICTATION DATE: 05/30/18 1218 TABLET MACHINE OPERATOR: 05/30/18 1237 DIS IN 05/30/18 [address] [place] [address]
--- NOTE | ~2018-05-27 | PRO ---
PATIENT:AC APONTE MEDICAL RECORD: [id number] : 89 LOCATION:[id number] ADMISSION DATE: 05/27/18 PROCEDURE PERFORMED BY: SARAI MIGUEL MD DATE OF PROCEDURE: 05/28/2018 DELIVERY NOTE PREDELIVERY DIAGNOSIS: at term. POSTDELIVERY DIAGNOSIS: Mother delivered at term. PROCEDURE: Induction of labor with vaginal delivery. ATTENDING: Sarai Miguel MD ANESTHETIC: Continuous lumbar epidural. FINDINGS: Viable male in vertex presentation. Apgars are 9/9. The weight was 9 pounds 5 ounces. Placenta spontaneous and intact. ESTIMATED BLOOD LOSS: 300 cc. DISPOSITION: Mother and recovered in the room. TRANSINT:[id number] Voice Confirmation ID: [id number] DOCUMENT ID: [id number] SARAI MIGUEL MD at 1803 CC: [id number] DICTATION DATE: 05/30/18 1217 FILLING MIXER: 05/30/18 1231 DIS IN 05/30/18 [id number] [place] [address]
[~2018-05-27 20:19] MED LIST changes: -CELEXA20 MG PO; -MICRONOR0.35 MG PO; -ROBAXIN500 MG PO
[2018-05-27 21:06] VITALS: BP 128/83; Ht 165.1 cm; Wt 125.6 kg
[2018-05-27 21:27] LABS: HEMATOCRIT 35.9 % (36.0-48.0); HEMOGLOBIN 11.9 g/dL (12-16); MCH 27.4 pg (26.0-34.0); MCHC 33.1 g/dL (31.0-37.0); MCV 82.7 fL (80.0-100.0); MEAN PLATELET VOLUME 10.3 fL (7.4-10.4); RBC 4.34 10x6/uL (4.00-5.40); WBC 11.6 10x3/uL (4.8-10.8)
[2018-05-27 21:35] LABS: APPEARANCE HAZY (CLEAR); BILIRUBIN NEGATIVE (NEGATIVE); COLOR YELLOW (YELLOW); GLUCOSE NEGATIVE (NEGATIVE); KETONE NEGATIVE (NEGATIVE); NITRITE NEGATIVE (NEGATIVE); PROTEIN NEGATIVE (NEGATIVE); UROBILINOGEN NORMAL (NORMAL)
[2018-05-27 21:37] LABS: BACTERIA MODERATE /hpf (NONE SEEN); MUCUS >1+ /lpf (NONE SEEN); RED CELLS - URINE OCC /hpf (0-5)
[2018-05-28 19:45] VITALS: BP 117/73
[2018-05-29 00:30] VITALS: BP 137/69
[2018-05-29 04:10] VITALS: BP 119/74
[2018-05-29 07:45] VITALS: BP 128/64
[2018-05-29 07:47] LABS: BASOPHILS 0.3 % (0-2); EOSINOPHILS 1.4 % (0-7); HEMATOCRIT 32.2 % (36.0-48.0); HEMOGLOBIN 10.5 g/dL (12-16); IMMATURE GRANULOCYTES 0.2 % (0-5); LYMPHOCYTES 19.2 % (15-50); MCH 26.9 pg (26.0-34.0); MCHC 32.6 g/dL (31.0-37.0); MCV 82.6 fL (80.0-100.0); MEAN PLATELET VOLUME 10.5 fL (7.4-10.4); MONOCYTES 7.6 % (2-11); NEUTROPHILS 71.3 % (40-80); PLATELET COUNT 255 10x3/uL (130-400)
[2018-05-29 08:19] LABS: RAPID PLASMA REAGIN Non Reactive (Non Reactive)
[2018-05-29 11:45] VITALS: BP 125/85
[2018-05-29 19:45] VITALS: BP 122/72
[2018-05-30 08:05] VITALS: BP 126/70
[2018-05-30] MEDS ORDERED: MICRONOR0.35 MG PO (13:17)
== END 2018-05-30 15:50 | disposition home or self-care (01) | DRG 775 ==
LOC: D.LD 20:19
PROVIDERS: Obstetrics & Gynecology
PROC: 10E0XZZ Delivery of Products of Conception, External Approach (ICD-10-PCS; principal; 2018-05-28)
PROC: 3E033VJ Introduction of Other Hormone into Peripheral Vein, Percutaneous Approach (ICD-10-PCS; 2018-05-28)
DX: O99.824 Streptococcus B carrier state complicating childbirth (principal); Z3A.39 39 weeks gestation of pregnancy; Z37.0 Single live birth

== ENCOUNTER 2018-06-22 12:47 | Emergency (ER) | payer MEDICAID ==
[~2018-06-22] VITALS: Ht 165.1 cm; Wt 104.5 kg
[~2018-06-22 12:47] MED LIST changes: +MICRONOR0.35 MG PO
[2018-06-22 13:35] VITALS: BP 106/60; Ht 165.1 cm; Wt 104.5 kg
== END 2018-06-22 21:00 | disposition home or self-care (01) ==
LOC: D.ER 12:47
DX: R10.9 Unspecified abdominal pain (principal)

== ENCOUNTER 2018-07-12 11:23 | Emergency (ER) | payer MEDICAID ==
[~2018-07-12] VITALS: Ht 165.1 cm; Wt 115.9 kg
[2018-07-12 11:28] VITALS: Ht 165.1 cm; Wt 115.9 kg
[2018-07-12] MEDS ORDERED: CELEXA20 MG PO (11:29)
[2018-07-12 12:26] LABS: APPEARANCE CLEAR (CLEAR); COLOR YELLOW (YELLOW); NITRITE NEGATIVE (NEGATIVE); SPECIFIC GRAVITY 1.015 (1.005-1.020)
[2018-07-12 12:27] LABS: BILIRUBIN NEGATIVE (NEGATIVE); GLUCOSE NEGATIVE (NEGATIVE); KETONE NEGATIVE (NEGATIVE); PROTEIN NEGATIVE (NEGATIVE); UROBILINOGEN NORMAL (NORMAL)
[2018-07-12 12:31] LABS: BASOPHILS 0.5 % (0-2); EOSINOPHILS 3.9 % (0-7); HEMATOCRIT 37.7 % (36.0-48.0); HEMOGLOBIN 12.4 g/dL (12-16); IMMATURE GRANULOCYTES 0.2 % (0-5); LYMPHOCYTES 24.9 % (15-50); MCH 26.8 pg (26.0-34.0); MCHC 32.9 g/dL (31.0-37.0); MCV 81.4 fL (80.0-100.0); MEAN PLATELET VOLUME 9.4 fL (7.4-10.4); MONOCYTES 5.8 % (2-11); NEUTROPHILS 64.7 % (40-80); PLATELET COUNT 235 10x3/uL (130-400); RBC 4.63 10x6/uL (4.00-5.40); RDW 13.5 % (11.5-14.5); WBC 6.6 10x3/uL (4.8-10.8)
[2018-07-12 13:05] LABS: ALBUMIN 3.1 g/dL (3.4-5.0); ALKALINE PHOSPHATASE 93 U/L (46-116); ALT (SGPT) 20 U/L (10-68); AMYLASE - SERUM 45 U/L (25-115); BILIRUBIN - TOTAL 0.42 mg/dL (0.2-1.3); CALC OSMOLALITY 279 mosm/kg (275-300); CALCIUM 8.3 mg/dL (8.5-10.1); CARBON DIOXIDE 28.9 mmol/L (21.0-32.0); CHLORIDE - SERUM 106 mmol/L (98-107); CREATININE - SERUM 0.9 mg/dL (0.6-1.3); GLUCOSE 93 mg/dL (74-106); LIPASE 143 U/L (73-393); POTASSIUM - SERUM 4.3 mmol/L (3.5-5.1); SODIUM 141 mmol/L (136-145); UREA NITROGEN 9 mg/dL (7-18); eGFR NON AFRICAN AMERICAN 85 mL/min (90-120)
[2018-07-12] MEDS ORDERED: ROBAXIN500 MG PO (14:58)
[2018-07-12 15:40] VITALS: BP 128/74
== END 2018-07-12 15:40 | disposition home or self-care (01) ==
LOC: D.ER 11:23
PROVIDERS: Family Medicine
DX: O90.89 Other complications of the puerperium, not elsewhere classified (principal); R10.11 Right upper quadrant pain; N94.10 Unspecified dyspareunia

== ENCOUNTER 2018-12-18 10:52 | Emergency (ER) | payer MEDICAID ==
[~2018-12-18] VITALS: Ht 165.1 cm; Wt 116.4 kg
[~2018-12-18 10:52] MED LIST changes: +CELEXA20 MG PO; +ROBAXIN500 MG PO
[2018-12-18 11:06] VITALS: BP 111/63; Ht 165.1 cm; Wt 116.4 kg
[2018-12-18 11:41] LABS: BASOPHILS 0.5 % (0-2); EOSINOPHILS 3.3 % (0-7); HEMATOCRIT 41.2 % (36.0-48.0); HEMOGLOBIN 13.9 g/dL (12-16); IMMATURE GRANULOCYTES 0.1 % (0-5); LYMPHOCYTES 22.8 % (15-50); MCH 27.1 pg (26.0-34.0); MCHC 33.7 g/dL (31.0-37.0); MCV 80.3 fL (80.0-100.0); MEAN PLATELET VOLUME 9.7 fL (7.4-10.4); MONOCYTES 6.1 % (2-11); NEUTROPHILS 67.2 % (40-80); PLATELET COUNT 292 10x3/uL (130-400); RBC 5.13 10x6/uL (4.00-5.40); RDW 13.2 % (11.5-14.5); WBC 8.4 10x3/uL (4.8-10.8)
[2018-12-18 11:56] LABS: ALBUMIN 3.2 g/dL (3.4-5.0); ANION GAP 11.6 mmol/L (8-16); BILIRUBIN - TOTAL 0.39 mg/dL (0.2-1.3); CALCIUM 8.5 mg/dL (8.5-10.1); POTASSIUM - SERUM 3.6 mmol/L (3.5-5.1); PROTEIN - SERUM 7.2 g/dL (6.4-8.2)
[2018-12-18] MEDS ORDERED: BENTYL 20 MG TA20 MG PO (12:52)
[2018-12-18 13:37] LABS: APPEARANCE SL CLDY (CLEAR); BILIRUBIN NEGATIVE (NEGATIVE); COLOR YELLOW (YELLOW); GLUCOSE NEGATIVE (NEGATIVE); KETONE NEGATIVE (NEGATIVE); NITRITE NEGATIVE (NEGATIVE); PROTEIN NEGATIVE (NEGATIVE); SPECIFIC GRAVITY 1.015 (1.005-1.020); UROBILINOGEN NORMAL (NORMAL)
== END 2018-12-18 13:00 | disposition home or self-care (01) ==
LOC: D.ER 10:52
PROVIDERS: Emergency Medicine
DX: R10.9 Unspecified abdominal pain (principal)

== ENCOUNTER → 2019-01-15 12:25 | Outpatient (CLI) | payer MEDICAID ==
[2018-12-18 11:06] VITALS: BMI 42.6
[~2019-01-15 12:25] MED LIST changes: +BENTYL 20 MG TA20 MG PO
== END | disposition home or self-care (01) ==
LOC: D.US 11:00
PROVIDERS: ATTEND Obstetrics & Gynecology
DX: Z34.91 Encounter for supervision of normal pregnancy, unspecified, first trimester (principal)

== ENCOUNTER 2019-03-21 09:15 | Emergency (ER) | payer MEDICAID ==
[~2019-03-21] VITALS: Ht 165.1 cm; Wt 116.8 kg
[2019-03-21 09:21] VITALS: BP 117/57; Ht 165.1 cm; Wt 116.8 kg
[2019-03-21 10:05] LABS: BASOPHILS 0.2 % (0-2); EOSINOPHILS 2.5 % (0-7); HEMATOCRIT 34.1 % (36.0-48.0); HEMOGLOBIN 11.8 g/dL (12-16); IMMATURE GRANULOCYTES 0.2 % (0-5); LYMPHOCYTES 18.8 % (15-50); MCH 28.4 pg (26.0-34.0); MCHC 34.6 g/dL (31.0-37.0); MEAN PLATELET VOLUME 9.2 fL (7.4-10.4); NEUTROPHILS 73.3 % (40-80); RBC 4.16 10x6/uL (4.00-5.40); RDW 14.2 % (11.5-14.5); WBC 6.4 10x3/uL (4.8-10.8)
[2019-03-21 10:18] LABS: ALKALINE PHOSPHATASE 76 U/L (46-116); ALT (SGPT) 19 U/L (10-68); BILIRUBIN - TOTAL 0.39 mg/dL (0.2-1.3); CALC OSMOLALITY 268 mosm/kg (275-300); CALCIUM 8.6 mg/dL (8.5-10.1); CHLORIDE - SERUM 103 mmol/L (98-107); CREATININE - SERUM 0.7 mg/dL (0.6-1.3); GLUCOSE 87 mg/dL (74-106); POTASSIUM - SERUM 3.5 mmol/L (3.5-5.1); PROTEIN - SERUM 7.2 g/dL (6.4-8.2); SODIUM 136 mmol/L (136-145); UREA NITROGEN 7 mg/dL (7-18); eGFR NON AFRICAN AMERICAN > 90 mL/min (90-120)
[2019-03-21 10:19] LABS: PLATELET COUNT 221 10x3/uL (130-400)
== END 2019-03-21 10:27 | disposition home or self-care (01) ==
LOC: D.ER 09:15
PROVIDERS: Family Medicine
DX: O20.9 Hemorrhage in early pregnancy, unspecified (principal); Z3A.17 17 weeks gestation of pregnancy

== ENCOUNTER 2019-03-31 13:36 | Emergency (ER) | payer MEDICAID ==
[2019-03-31 13:53] VITALS: BMI 42.6
[2019-03-31 14:12] LABS: APPEARANCE CLEAR (CLEAR); BILIRUBIN NEGATIVE (NEGATIVE); COLOR STRAW (YELLOW); GLUCOSE NEGATIVE (NEGATIVE); KETONE LARGE mg/dL (NEGATIVE); NITRITE NEGATIVE (NEGATIVE); PROTEIN NEGATIVE (NEGATIVE); UROBILINOGEN NORMAL (NORMAL)
[2019-03-31 14:24] LABS: BASOPHILS 0.2 % (0-2); EOSINOPHILS 0.9 % (0-7); HEMATOCRIT 34.8 % (36.0-48.0); IMMATURE GRANULOCYTES 0.2 % (0-5); LYMPHOCYTES 16.5 % (15-50); MCH 28.4 pg (26.0-34.0); MCHC 34.5 g/dL (31.0-37.0); MCV 82.3 fL (80.0-100.0); MEAN PLATELET VOLUME 9.7 fL (7.4-10.4); NEUTROPHILS 77.2 % (40-80); PLATELET COUNT 229 10x3/uL (130-400); RBC 4.23 10x6/uL (4.00-5.40); RDW 14.3 % (11.5-14.5); WBC 8.2 10x3/uL (4.8-10.8)
[2019-03-31 14:36] LABS: ALBUMIN 3.2 g/dL (3.4-5.0); ALKALINE PHOSPHATASE 76 U/L (46-116); ALT (SGPT) 25 U/L (10-68); BILIRUBIN - TOTAL 0.55 mg/dL (0.2-1.3); CALC OSMOLALITY 270 mosm/kg (275-300); CALCIUM 8.8 mg/dL (8.5-10.1); CARBON DIOXIDE 22.4 mmol/L (21.0-32.0); CHLORIDE - SERUM 104 mmol/L (98-107); CREATININE - SERUM 0.6 mg/dL (0.6-1.3); GLUCOSE 92 mg/dL (74-106); POTASSIUM - SERUM 3.6 mmol/L (3.5-5.1); PROTEIN - SERUM 7.2 g/dL (6.4-8.2); SODIUM 137 mmol/L (136-145); UREA NITROGEN 5 mg/dL (7-18); eGFR NON AFRICAN AMERICAN > 90 mL/min (90-120)
[2019-03-31 14:57] LABS: HCG - QUANTITATIVE (MATERNAL) 25418 mIU/mL
[2019-03-31 15:30] VITALS: BP 122/64
== END 2019-03-31 15:31 | disposition home or self-care (01) ==
LOC: D.ER 13:36
PROVIDERS: Emergency Medicine
DX: O26.852 Spotting complicating pregnancy, second trimester (principal); Z3A.19 19 weeks gestation of pregnancy

== ENCOUNTER → 2019-04-23 18:25 | Outpatient (CLI) | payer MEDICAID ==
[2019-03-31 13:53] VITALS: BMI 42.6
== END | disposition home or self-care (01) ==
LOC: D.LDO 18:25
PROVIDERS: ATTEND Obstetrics & Gynecology
DX: O26.892 Other specified pregnancy related conditions, second trimester (principal); Z3A.21 21 weeks gestation of pregnancy; Y04.2XXA Assault by strike against or bumped into by another person, initial encounter

== ENCOUNTER 2019-04-26 11:17 | Emergency (ER) | payer MEDICAID ==
[~2019-04-26] VITALS: Ht 165.1 cm; Wt 111.4 kg
[2019-04-26 11:20] VITALS: BP 107/46; Ht 165.1 cm; Wt 111.4 kg
== END 2019-04-26 13:10 | disposition home or self-care (01) ==
LOC: D.ER 11:17
DX: O26.892 Other specified pregnancy related conditions, second trimester (principal); Z3A.22 22 weeks gestation of pregnancy; M79.18 Myalgia, other site; M79.604 Pain in right leg; M25.572 Pain in left ankle and joints of left foot; Y04.2XXA Assault by strike against or bumped into by another person, initial encounter; Y93.89 Activity, other specified; Y92.019 Unspecified place in single-family (private) house as the place of occurrence of the external cause

== ENCOUNTER → 2019-05-24 19:42 | Outpatient (CLI) | payer MEDICAID ==
[2019-04-26 11:20] VITALS: BMI 40.8
[2019-05-24 20:52] LABS: BASOPHILS 0.2 % (0-2); EOSINOPHILS 2.4 % (0-7); HEMATOCRIT 31.3 % (36.0-48.0); HEMOGLOBIN 10.7 g/dL (12-16); IMMATURE GRANULOCYTES 0.5 % (0-5); LYMPHOCYTES 22.1 % (15-50); MCH 29.6 pg (26.0-34.0); MCHC 34.2 g/dL (31.0-37.0); MCV 86.7 fL (80.0-100.0); MEAN PLATELET VOLUME 9.2 fL (7.4-10.4); MONOCYTES 5.8 % (2-11); PLATELET COUNT 235 10x3/uL (130-400); RBC 3.61 10x6/uL (4.00-5.40); WBC 8.3 10x3/uL (4.8-10.8)
[2019-05-24 20:59] LABS: APPEARANCE CLEAR (CLEAR); BILIRUBIN NEGATIVE (NEGATIVE); COLOR YELLOW (YELLOW); GLUCOSE NEGATIVE (NEGATIVE); KETONE NEGATIVE (NEGATIVE); NITRITE NEGATIVE (NEGATIVE); PROTEIN NEGATIVE (NEGATIVE); UROBILINOGEN NORMAL (NORMAL)
[2019-05-24 21:20] LABS: ALBUMIN 2.6 g/dL (3.4-5.0); ALKALINE PHOSPHATASE 86 U/L (46-116); ALT (SGPT) 13 U/L (10-68); AMYLASE - SERUM 55 U/L (25-115); CALC OSMOLALITY 271 mosm/kg (275-300); CALCIUM 8.1 mg/dL (8.5-10.1); CARBON DIOXIDE 25.3 mmol/L (21.0-32.0); CHLORIDE - SERUM 105 mmol/L (98-107); CREATININE - SERUM 0.7 mg/dL (0.6-1.3); GLUCOSE 91 mg/dL (74-106); LIPASE 136 U/L (73-393); POTASSIUM - SERUM 3.7 mmol/L (3.5-5.1); PROTEIN - SERUM 6.3 g/dL (6.4-8.2); SODIUM 137 mmol/L (136-145); UREA NITROGEN 7 mg/dL (7-18); eGFR NON AFRICAN AMERICAN > 90 mL/min (90-120)
== END | disposition home or self-care (01) ==
LOC: D.LDO 19:42
PROVIDERS: ATTEND Obstetrics & Gynecology
DX: R10.84 Generalized abdominal pain (principal)

== ENCOUNTER 2019-07-14 22:39 | Outpatient (CLI) | payer MEDICAID ==
[2019-04-26 11:20] VITALS: BMI 40.8
[2019-07-14 23:21] LABS: APPEARANCE HAZY (CLEAR); BILIRUBIN NEGATIVE (NEGATIVE); COLOR DK YELLOW (YELLOW); GLUCOSE NEGATIVE (NEGATIVE); KETONE NEGATIVE (NEGATIVE); NITRITE NEGATIVE (NEGATIVE); PROTEIN 1+ mg/dL (NEGATIVE); UROBILINOGEN NORMAL (NORMAL)
[2019-07-14 23:22] LABS: BACTERIA MANY /hpf (NONE SEEN); EPITHELIAL CELLS 0-5 /hpf (0-5); MUCUS >1+ /lpf (NONE SEEN); RED CELLS - URINE NONE SEEN /hpf (0-5); WHITE CELLS - URINE 0-5 /hpf (0-5)
== END 2019-07-15 00:14 ==
LOC: D.LDO 22:39 → D.LD 22:40 → D.LDO 07-15 00:14
PROVIDERS: ATTEND Student in an Organized Health Care Education/Training Program
DX: O26.893 Other specified pregnancy related conditions, third trimester (principal); Z3A.33 33 weeks gestation of pregnancy; R10.9 Unspecified abdominal pain; O26.853 Spotting complicating pregnancy, third trimester

== ENCOUNTER 2019-08-02 22:48 | Outpatient (CLI) | payer MEDICAID ==
[2019-04-26 11:20] VITALS: BMI 40.8
[2019-08-02 23:22] LABS: APPEARANCE CLEAR (CLEAR); BILIRUBIN NEGATIVE (NEGATIVE); COLOR YELLOW (YELLOW); GLUCOSE NEGATIVE (NEGATIVE); KETONE NEGATIVE (NEGATIVE); NITRITE NEGATIVE (NEGATIVE); PROTEIN NEGATIVE (NEGATIVE); UROBILINOGEN NORMAL (NORMAL)
[2019-08-02 23:30] LABS: UDS - AMPHET NEGATIVE QUAL (NEGATIVE); UDS - BARB NEGATIVE QUAL (NEGATIVE); UDS - BENZO NEGATIVE QUAL (NEGATIVE); UDS - COCAINE NEGATIVE QUAL (NEGATIVE); UDS - OPIATE NEGATIVE QUAL (NEGATIVE); UDS - PCP NEGATIVE QUAL (NEGATIVE); UDS - THC NEGATIVE QUAL (NEGATIVE)
== END 2019-08-03 00:16 | disposition home or self-care (01) ==
LOC: D.LDO 22:48 → D.LD 23:03 → D.LDO 08-03 00:16
PROVIDERS: ATTEND Student in an Organized Health Care Education/Training Program
DX: O47.9 False labor, unspecified (principal)

== ENCOUNTER → 2019-08-11 10:48 | Outpatient (CLI) | payer MEDICAID ==
[2019-04-26 11:20] VITALS: BMI 40.8
[2019-08-11 11:28] LABS: APPEARANCE HAZY (CLEAR); BILIRUBIN NEGATIVE (NEGATIVE); COLOR YELLOW (YELLOW); GLUCOSE NEGATIVE (NEGATIVE); KETONE NEGATIVE (NEGATIVE); NITRITE NEGATIVE (NEGATIVE); PROTEIN NEGATIVE (NEGATIVE); UROBILINOGEN NORMAL (NORMAL)
[2019-08-11 11:29] LABS: BACTERIA MANY /hpf (NEGATIVE); EPITHELIAL CELLS 0-5 /hpf (0-5); MUCUS >1+ /lpf (NONE SEEN); RED CELLS - URINE 0-5 /hpf (0-5)
--- NOTE | 2019-08-11 11:39 | NUR ---
DR MAC VISITED PT. ORDERS RECEIVED TO DC HOME WITH INFANT.
== END | disposition home or self-care (01) ==
LOC: D.LDO 10:48
PROVIDERS: ATTEND Obstetrics & Gynecology
DX: O26.893 Other specified pregnancy related conditions, third trimester (principal); Z3A.37 37 weeks gestation of pregnancy; M54.9 Dorsalgia, unspecified

== ENCOUNTER → 2019-08-11 15:30 | Outpatient (CLI) | payer MEDICAID ==
[2019-04-26 11:20] VITALS: BMI 40.8
== END | disposition home or self-care (01) ==
LOC: D.LDO 15:30
PROVIDERS: ATTEND Obstetrics & Gynecology
DX: O26.893 Other specified pregnancy related conditions, third trimester (principal); Z3A.37 37 weeks gestation of pregnancy

== ENCOUNTER 2019-08-21 19:30 | Inpatient (IN) | payer MEDICAID ==
[~2019-08-21] VITALS: Ht 165.1 cm; Wt 115.5 kg
[2019-08-21 20:21] LABS: HEMATOCRIT 36.8 % (36.0-48.0); HEMOGLOBIN 12.2 g/dL (12-16); MCH 27.7 pg (26.0-34.0); MCHC 33.2 g/dL (31.0-37.0); MCV 83.6 fL (80.0-100.0); MEAN PLATELET VOLUME 10.2 fL (7.4-10.4); RBC 4.4 10x6/uL (4.00-5.40); RDW 13.2 % (11.5-14.5); WBC 11.8 10x3/uL (4.8-10.8)
[2019-08-21 20:51] VITALS: BP 116/69; Ht 165.1 cm; Wt 115.5 kg
--- NOTE | 2019-08-22 16:00 | NUR ---
MOTRIN GIVEN SCANNED TO EMAR. PT RATES PAIN AT 6/10. SHE IS VISITING WITH FRIENDS/FAMLIY AT BEDSIDE.
--- NOTE | 2019-08-22 17:30 | NUR ---
PT AMB TO NURSERY TO VIEW/ASSIST WITH BATH.
--- NOTE | 2019-08-22 18:30 | NUR ---
DENIES NEEDS AT THIS TIME. RATES PAIN AT 2/10. FAMILY/FRIENDS AT BEDSIDE. CALL LIGHT IN REACH.
--- NOTE | 2019-08-22 19:11 | NUR ---
BEDSIDE REPORT REC'D. PT REC'D IN HIGH FOWLERS POSITION PLAYING ON CELL PHONE. DENIES NEEDS AT THIS TIME. FOB ENTERING ROOM. BED IN LOW POSITION WITH SRUPX2. CALL LIGHT AND PHONE WITHIN REACH. WILL CONTINUE TO MONITOR.
[2019-08-22 20:00] VITALS: BP 114/63
--- NOTE | 2019-08-22 20:00 | NUR ---
THIS RN AT BEDSIDE DURING SHIFT ASSESSMENT AND AGREES WITH SHIFT ASSESSMENT CHARTED BY Wayne REYES RN.
--- NOTE | 2019-08-22 20:00 | NUR ---
SHIFT ASSESSMENT COMPLETE. VSS. FUNDUS FIRM MIDLINE U2. SMALL LOCHIA NOTED. DENIES PASSING CLOTS. VOIDING WITHOUT DIFFICULTY. DENIES PAIN AT THIS TIME. POC DISCUSSED. QUESTIONS ANSWERED. BED IN LOW POSITION, SR UP X2. CALL LIGHT AND PHONE WITHIN PTS REACH. REPORTS FOB WILL BE RETURNING TO STAY THE NIGHT, INSTRUCTED TO NOTIFY NURSE WITH ANY PROBLEMS, NEEDS, OR CONCERNS. VERBALIZED UNDERSTANDING.
--- NOTE | 2019-08-22 22:09 | NUR ---
C/O ABD CRAMPING 05/08. MOTRIN GIVEN PER ORDER AND PT REQUEST. ALSO C/O FEELING NASEATED. REQUESTS ZOFRAN, ORDER OBTAINED. DISCUSSED WITH PT THAT HEAD PACKAGER WILL HAVE TO COME TO UNIT TO PULL MED, VERBALIZES UNDERSTANDING. INFANT IN NBN. DENIES ADDITIONAL NEEDS. BED IN LOW POSITION WITH SRUPX2. CALL LIGHT AND PHONE WITHIN REACH.
--- NOTE | 2019-08-22 22:12 | NUR ---
EMELY AVAILABLE ON UNIT PER GLOBAL FIND, THIS RN UNABLE TO PULL MEDS. SHANNA, BENCH HAND MACHINE NOTIFIED AND WILL COME TO UNIT TO PULL MEDICATION.
--- NOTE | 2019-08-22 22:26 | NUR ---
SHANNA, FOOD PREPARATION SUPERVISOR ON UNIT TO PULL NEEDED MED.
--- NOTE | 2019-08-22 22:29 | NUR ---
4 MG PO ZOFRAN PROVIDED PER ORDER. EDUCATED ON MED, VERBALIZES UNDERSTANDING AND DENIES QUESTIONS. LIGHTS OFF PER PT REQUEST. WATCHING TV AND TEXTING ON CELL PHONE. BED IN LOW POSITION WITH SRUP X2. CALL LIGHT AND PHONE WITHIN REACH. REPORTS THAT SIGNIFICANT OTHER HAD TO LEAVE TO GO BE WITH OLDER CHILD AND WILL NOT BE BACK TO HOSPITAL TONIGHT.
--- NOTE | 2019-08-22 23:00 | NUR ---
PT AWAKE AND ALERT RESTING IN BED. REPORTS THAT HER NAUSEA IS BETTER. SHE RATES HER PAIN AT 2/10. DENIES ANY ADDITIONAL NEED AT THIS TIME. BED IN LOW POSITION, SR UP X2. CALL LIGHT AND PHONE WITHIN REACH, INSTRUCTED TO NOTIFY NURSE WITH ANY PROBLEMS, NEEDS, OR CONCERNS, VERBALIZED UNDERSTANDING.
--- NOTE | 2019-08-23 01:09 | NUR ---
RESTING QUIETLY WITH EYES CLOSED LAYING ON LT SIDE. AROUSES TO DOOR OPENING. APPLE JUICE PROVIDED PER PT REQUEST. DENIES ADDITIONAL NEEDS. BED IN LOW POSITION WITH SRUPX2. CALL LIGHT AND PHONE WITHIN REACH. NBN CONTACTED AND PT UPDATED ON .
--- NOTE | 2019-08-23 03:18 | NUR ---
PT RESTING IN BED. NO DISTRESS NOTED. BED IN LOW POSITION. SR UP X2. CALL LIGHT AND PHONE IN REACH. WILL CONTINUE TO MONITOR.
[2019-08-23 04:58] LABS: BASOPHILS 0.2 % (0-2); EOSINOPHILS 1.1 % (0-7); IMMATURE GRANULOCYTES 0.3 % (0-5); LYMPHOCYTES 23.8 % (15-50); MCH 27.7 pg (26.0-34.0); MCHC 32.4 g/dL (31.0-37.0); MEAN PLATELET VOLUME 10.4 fL (7.4-10.4); MONOCYTES 8.6 % (2-11); RBC 3.97 10x6/uL (4.00-5.40); RDW 13.2 % (11.5-14.5); WBC 10.7 10x3/uL (4.8-10.8)
[2019-08-23 05:08] LABS: MCV 85.6 fL (80.0-100.0); PLATELET COUNT 239 10x3/uL (130-400)
--- NOTE | 2019-08-23 05:22 | NUR ---
PT C/O ABD CRAMPING. MOTRIN 600 MG GIVEN PER HER REQUEST. WATER PITCHER AND APPLE JUICE PROVIDED. PT REQUEST TO CHANGE FORMULA. NBN NOTIFIED. DENIES ANY OTHER NEEDS AT THIS TIME. BED IN LOW POSITION, SRU X2, BED IN LOW POSITION, CALL LIGHT AND PHONE IN REACH. INSTRUCTED PT TO NOTIFY NURSE WITH ANY PROBLEMS, NEEDS, OR CONCERNS. VERBALIZED UNDERSTANDING.
--- NOTE | 2019-08-23 06:15 | NUR ---
PAIN REMAINS THE SAME AT THIS TIME. PT REPORTS THAT SHE JUST COMPLETED BF AND PAIN ALWAYS INCREASES WITH BF. DENIES NEED FOR ADDITIONAL INTERVENTION, REPORTS THAT IT WILL DECREASE ONCE BF COMPLETED. BED IN LOW POSITION WITH SRUPX2. CALL LIGHT AND PHONE WITHIN REACH. WILL CONTINUE TO MONITOR.
[2019-08-23 07:15] LABS: RAPID PLASMA REAGIN Non Reactive (Non Reactive)
--- NOTE | 2019-08-23 09:45 | NUR ---
AM ASSESSMENT COMPLETED CHARTED ON FLOWSHEET. PT RATES PAIN AT 0/10. FUNDUS FIRM AT U/U WITH LIGHT BLEEDING PER PT WITHOUT CLOTS. PT ASK ABOUT DEPO-PROVERA SHOT STATING SHE WILL TALK TO MD AT VISIT ABOUT TUBAL LIGATION. SHE IS ALSO WONDERING ABOUT ROOMING IN AND WHEN SHE COULD MOVE ROOMS, EXPLAINED THAT DID NOT HAVE ORDER FOR ROOMIN AT THIS TIME, PER PT DR MAC TALKED TO HER ABOUT THIS YESTERDAY AT TIME OF DELIVERY. DENIES ANY OTHER QUESTIONS OR CONCERNS AT THIS TIME.
--- NOTE | 2019-08-23 10:20 | NUR ---
pt providied with written info about Rooming In, MMR and Depo Provera so that patient is able to read over and question anything she may not understand.
--- NOTE | 2019-08-23 12:59 | NUR ---
DR VILLALPANDO ROUNDS, ORDER PLACED FOR CASE MANAGEMENT CONSULT DUE TO PT VISIBLY UPSET ABOUT HOME LIFE. ORDER IN [facility]
--- NOTE | 2019-08-23 15:15 | NUR ---
DEPO PROVERA AND MMR GIVEN SCANNED TO EMAR. PT DENIES PAIN OR DISCOMFORT AT THIS TIME. SHE UNDERSTANDS THAT CASE MANAGEMENT WILL BE COMING TO VISIT WITH HER PER DR VILLALPANDO REQUEST. DENIES QUESTIONS. CALL LIGHT IN REACH.
--- NOTE | 2019-08-23 15:40 | NUR ---
CASE MANAGEMENT TO ROOM.
--- NOTE | 2019-08-23 15:43 | NUR ---
CASE MANAGEMENT FINISHES SPEAKING WITH PT AND INDICATES NO FURTHER MEASURES NEEDED. NOTIFIED DR VILLALPANDO. OK ORDER FOR ROOMING IN AND REQUESTS CELEXA 10MG DAILY TO BE CALLED IN TO PT PHARMACY.
--- NOTE | 2019-08-23 16:00 | NUR ---
CAMERON GIVEN PER REQUEST FOR CRAMPING THAT PT RATES 4/10. VERBAL AND WRITTEN DISCHARGE INSTRUCTIONS GONE OVER WITH PT. SHE HAS ALSO SIGNED ROOMING IN POLICY WITHOUT QUESTIONS. GATHERING HER PERSONNEL BELONGINGS AND WILL CALL WHEN READY TO TRANSFER ROOMS.
--- NOTE | 2019-08-23 16:10 | NUR ---
PT TRANSFERRED TO ROOM 1218 FOR ROOMING IN STATUS. NURSERY NOTIFIED.
--- NOTE | 2019-08-23 20:57 | MORECARE ---
CASE MANAGEMENT DISCHARGE SUMMARY PATIENT: AC APONTE UNIT: [id number] ADM DATE: 08/21/19 AGE: 23 : 97 SEX: F ROOM/BED: D.8894 AUTHOR: CHLOE GARCIA PHYSICIAN: REFERRING PHYSICIAN: SARAI MAC MD DATE OF SERVICE: 08/23/19 Discharge Plan Patient Name: AC APONTE Facility: [facility]:[place] : 1995 Planned Disposition: Anticipated Discharge Date: Discharge Date: 08/23/2019 Expected LOS: Initial Reviewer: [email or web address] Initial Review Date: 08/21/2019 Generated: 08/23/19 9:56 pm Comments DCP- Discharge Planning Updated by [email or web address]: Jory Cotter on 08/23/19 7:[address] DC PLAN: MOB states she plans taking home. Address:[address] [place] [address]. DC NEEDS: Denies any needs TRANSPORTATION: private vehicle WIC: No appointment yet but toddler has WIC plans to go Monday MEDICAID: MOB states she has filled out paperwork CAR SEAT: Yes FEEDING PLAN: Plans breast and formula feed. MOB states will use bottled water with formula. 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 MOB states they have smoke alarms in the home AIR CONDITIONING: yes CM met with MOB after obtaining verbal consent regarding dc planning/needs. MOB to return to her home with infant. States home environment is safe. She states in addition to herself, three other people live in the home. MOB states she will have transportation to follow up appointments. MOB states this is her third child. MOB states that she does have custody of her one of her other children. Her father has custody of her older son Enrique. Ages are 3 year old and 1yr old (Calin) both boys. JAVIER denies any pets, smoking, alcohol or drug use in the home. MOB states that she plans on finding employment after recovering from delivery. MOB states that she is going to be staying with a friend until she is back to work and can get a place of her own. MOB states she will have family and friends to help care for children once she starts working. FOB does help out and keep the 1 yr old at times. MOB states she has a good support system. CM will continue to follow and assist as needed with dc planning/needs. Patient Name: AC APONTE Page [id number] at 2057 All edits/amendments must be made on the electronic document DICTATION DATE: 08/23/192055 MEDICAL APPLIANCE MAKER: MARLEN 08/23/192055 RPT#: [id number] LAVONNE DATE:08/23/19 STATUS: DIS IN [facility] [address] [place] [address] END OF REPORT
--- NOTE | 2019-08-25 12:19 | MORECARE ---
CASE MANAGEMENT DISCHARGE SUMMARY PATIENT: AC APONTE UNIT: [id number] ADM DATE: 08/21/19 AGE: 23 : 97 SEX: F ROOM/BED: D.6794 AUTHOR: CHLOE GARCIA PHYSICIAN: REFERRING PHYSICIAN: SARAI MAC MD DATE OF SERVICE: 08/25/19 Discharge Plan Patient Name: AC APONTE Facility: [facility]:[place] : 1995 Planned Disposition: Home Anticipated Discharge Date: 08/23/19 Discharge Date: 08/23/2019 Expected LOS: 2 Initial Reviewer: [email or web address] Initial Review Date: 08/21/2019 Generated: 08/25/19 1:18 pm Comments DCP- Discharge Planning Updated by [email or web address]: Jory Cotter on 08/23/19 7:[address] DC PLAN: MOB states she plans taking infant home. Address:[address] [place] [address]. DC NEEDS: Denies any needs TRANSPORTATION: private vehicle WIC: No appointment yet but toddler has WIC plans to go Monday MEDICAID: MOB states she has filled out paperwork CAR SEAT: Yes FEEDING PLAN: Plans breast and formula feed. MOB states will use bottled water with formula. 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 MOB states they have smoke alarms in the home AIR CONDITIONING: yes CM met with MOB after obtaining verbal consent regarding dc planning/needs. MOB to return to her home with infant. States home environment is safe. She states in addition to herself, three other people live in the home. MOB states she will have transportation to follow up appointments. MOB states this is her third child. JAVIER states that she does have custody of her one of her other children. Her father has custody of her older son Enrique. Ages are 3 year old and 1yr old (Calin) both boys. MOB denies any pets, smoking, alcohol or drug use in the home. JAVIER states that she plans on finding employment after recovering from delivery. JAVIER states that she is going to be staying with a friend until she is back to work and can get a place of her own. JAVIER states she will have family and friends to help care for children once she starts working. FOB does help out and keep the 1 yr old at times. JAVIER states she has a good support system. CM will continue to follow and assist as needed with dc planning/needs. Last DP export: 08/23/19 7:57 Patient Name: AC APONTE Page [id number] at 1219 All edits/amendments must be made on the electronic document DICTATION DATE: 08/25/191217 APPEALS REVIEWER VETERAN: MARLEN 08/25/191217 RPT#: [id number] DC DATE:08/23/19 STATUS: DIS IN [facility] [address] [place] [address] END OF REPORT
== END 2019-08-23 16:13 | disposition home or self-care (01) | DRG 807 ==
LOC: D.LD 19:30
PROVIDERS: ADMIT Obstetrics & Gynecology; ATTEND Obstetrics & Gynecology
PROC: 3E033VJ Introduction of Other Hormone into Peripheral Vein, Percutaneous Approach (ICD-10-PCS; 2019-08-21)
PROC: 10E0XZZ Delivery of Products of Conception, External Approach (ICD-10-PCS; principal; 2019-08-22)
DX: O99.824 Streptococcus B carrier state complicating childbirth (principal); Z37.0 Single live birth; Z3A.39 39 weeks gestation of pregnancy; O99.344 Other mental disorders complicating childbirth; F32.9 Major depressive disorder, single episode, unspecified

== ENCOUNTER 2019-11-18 05:00 | Day surgery (SDC) | payer MEDICAID ==
[2019-11-15 10:54] LABS: BASOPHILS 0.3 % (0-2); HEMATOCRIT 38.6 % (36.0-48.0); HEMOGLOBIN 12.8 g/dL (12-16); IMMATURE GRANULOCYTES 0.3 % (0-5); LYMPHOCYTES 26.4 % (15-50); MCH 28.4 pg (26.0-34.0); MCHC 33.2 g/dL (31.0-37.0); MCV 85.6 fL (80.0-100.0); MEAN PLATELET VOLUME 9.6 fL (7.4-10.4); MONOCYTES 5.7 % (2-11); NEUTROPHILS 62.3 % (40-80); RBC 4.51 10x6/uL (4.00-5.40); RDW 13.8 % (11.5-14.5); WBC 6.6 10x3/uL (4.8-10.8)
[2019-11-15 10:58] LABS: PLATELET COUNT 306 10x3/uL (130-400)
[~2019-11-18] VITALS: Ht 165.1 cm; Wt 100.7 kg
[~2019-11-18 05:00] MED LIST changes: +BUSPIRONE HCL30 MG PO; +CELEXA10 MG PO
[2019-11-18 05:58] VITALS: BP 123/65; Ht 165.1 cm; Wt 100.7 kg
[2019-11-18 06:06] LABS: HCG URINE NEGATIVE (NEGATIVE)
--- NOTE | 2019-11-18 08:53 | NUR ---
0850 DR. MAC ROUNDS. ORDERS RECEIVED TO GIVE THIS PT 30MG MORE TORODOL IM FOR PAIN.
--- NOTE | 2019-11-20 15:48 | OP ---
PATIENT NAME: AC APONTE MEDICAL RECORD: [id number] :89 LOCATION:D.OPS ADMISSION DATE: SURGEON: SARAI MAC MD DATE OF OPERATION: 11/18/2019 PREOPERATIVE DIAGNOSIS: Unwanted fertility. POSTOPERATIVE DIAGNOSIS: Unwanted fertility. PROCEDURES: 1. Diagnostic laparoscopy. 2. Bilateral tubal occlusion using Falope ring. SURGEON: Sarai Mac MD AIRCRAFT METALSMITH: David Frank. ANESTHESIOLOGIST: Dr. Gray. ANESTHESIA: General. FINDINGS: Unremarkable uterus, tubes, and ovaries bilaterally. What was visualized of the abdominal anatomy was unremarkable. SPECIMENS REMOVED: Not applicable. ESTIMATED BLOOD LOSS: Minimal. FLUIDS: 800 cc of lactated Ringer's. URINE OUTPUT: 30 cc. COMPLICATIONS: None. DRAINS: None. INDICATIONS: The patient is a 26-year-old multiparous female with undesired fertility. Risks, benefits as well as alternatives to tubal occlusion discussed at length. The patient understood all risks and wishes to proceed. DESCRIPTION OF PROCEDURE: After informed consent was assured, the patient was taken to the operating room where anesthetic was obtained. The patient is supine on the table and prepped and draped. Incision was made at the umbilicus to accommodate a 5-mm trocar, which was inserted without difficulty, pneumoperitoneum developed. The patient was now placed in Trendelenburg position. An 8 mm port was placed 2 fingerbreadths above the symphysis in the midline. Through this port, a blunt probe was utilized to expose the tubes. Both tubes were followed to the fimbriated ends. Using a Falope ring applicator, a Silastic ring was placed first on the right and then the left isthmic portion of the tube. Marcaine was placed over both occlusion sites. The accessory trocars were removed under direct visualization and pneumoperitoneum was released. Primary trocars were removed and all sites closed with subcuticular stitch. Dermabond was applied. Sponge, lap, and needle counts were correct times 2. OPERATIVE REPORT [id number] AC APONTE TRANSINT:[id number] Voice Confirmation ID: [id number] DOCUMENT ID: [id number] SARAI MAC MD at 1548 CC: [id number] DICTATION DATE: 11/18/19 0751 SURGICAL SUPERVISOR: 11/18/19 [address] [facility] SDC 11/18/[address] [facility] [address] [facility] [place] [address]
== END 2019-11-18 10:47 | disposition home or self-care (01) ==
LOC: D.OPS 05:00 → D.PAN 07:00 → D.OPS 07:00 → D.PAN 09:35 → D.OPS 10:47
PROVIDERS: ATTEND Obstetrics & Gynecology
DX: Z30.2 Encounter for sterilization (principal); Z30.9 Encounter for contraceptive management, unspecified; N39.0 Urinary tract infection, site not specified